=== PATIENT | female | born 1965 | race Caucasian/White ===

== ENCOUNTER 2019-06-12 15:22 | Emergency (ER) | payer OTHER ==
[~2019-06-12] VITALS: Ht 157.5 cm; Wt 63.5 kg
[2019-06-12 15:23] VITALS: BP 139/86
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
[2019-06-12] MEDS ORDERED: IBUPROFEN 600 MG TAB PO ONE (15:35)
[2019-06-12] MEDS ORDERED: CYCLOBENZAPRINE 10 MG TAB PO ONE (15:35)
[2019-06-12 16:15] VITALS: BP 142/78
--- NOTE | 2019-06-12 16:15 | NUR ---
Patient discharged with v/s stable. Written and verbal after care instructions given and explained. Patient alert, oriented and verbalized understanding of instructions. Ambulatory with steady gait. All questions addressed prior to discharge. ID band removed. Patient advised to follow up with PMD. Rx of flexeril, naproxen given. Patient educated on indication of medication including possible reaction and side effects. Opportunity to ask questions provided and answered.
== END 2019-06-12 16:15 | disposition home or self-care (01) ==
LOC: MED 15:22
DX: M79.641 Pain in right hand (principal); V49.88XA Car occupant (driver) (passenger) injured in other specified transport accidents, initial encounter; Y92.488 Other paved roadways as the place of occurrence of the external cause; Y93.89 Activity, other specified; Y99.8 Other external cause status
CPT/HCPCS: 73090; 99283